=== PATIENT | female | born 2000 | race Two or more races ===

== ENCOUNTER 2023-07-13 10:43 | Outpatient (REF) | payer OTHER, SELFPAY ==
--- NOTE | ~2023-07-13 | US_ITS ---
EXAMINATION: US PELVIS CLINICAL INFORMATION: Irregular menstrual bleeding; the last menstrual period began on 05/11/2023, extending through 06/22/2023. COMPARISON: None available. TECHNIQUE: Ultrasound of the pelvis is performed using both transabdominal and transvaginal transducers along with Doppler. Transvaginal imaging is performed due to inadequate visualization transabdominally. FINDINGS: Uterus: The uterus is retroverted. The uterus measures 7.9 x 3.3 x 4.3 cm. The double wall endometrial thickness is 8 mm. The uterus is smooth in contour and has normal myometrial echogenicity. No visible fibroid. Adnexa: Both ovaries are visualized. There is normal color flow to the adnexa. There is no ovarian torsion. There is a small amount of free fluid noted within the cul-de-sac. Right ovary measures 1.3 x 2.5 x 2.4 cm, volume 4.0 mL. A 1.1 x 1.2 x 1.2 cm simple right paraovarian cyst is noted Left ovary measures 2.9 x 1.3 x 2.5 cm, volume 7.5 mL. US/US pelvic and transvaginal IMPRESSION: 1. A 1.2 cm right paraovarian cyst is seen. 2. There is a small amount of nonspecific free fluid in the cul-de-sac.
== END 2023-07-13 10:44 | disposition home or self-care (01) ==
LOC: HO.UMASIMG 10:43
PROVIDERS: PCP Nurse Practitioner Women's Health; Visit Provider Internal Medicine
DX: N92.6 Irregular menstruation, unspecified (principal)
CPT/HCPCS: 76830; 76856